=== PATIENT | female | born 1995 | race Caucasian/White ===

== ENCOUNTER 2018-12-29 21:13 | Emergency (ER) | payer OTHER, MEDICAID ==
[2018-12-29] MEDS: ACETAMINOPHEN 500 MG TAB PO (22:11)
[2018-12-29] MEDS: traMADol 50 MG TAB PO (23:42)
== END 2018-12-29 23:57 | disposition home or self-care (01) ==
LOC: FTE 21:13
DX: S00.03XA Contusion of scalp, initial encounter (principal); S13.4XXA Sprain of ligaments of cervical spine, initial encounter; R06.02 Shortness of breath; V49.59XA Passenger injured in collision with other motor vehicles in traffic accident, initial encounter
CPT/HCPCS: 71045; 81025; 99283-25